=== PATIENT | female | born 1990 | race Caucasian/White ===

== ENCOUNTER 2022-12-10 11:27 | Outpatient (CLI) | payer OTHER, SELFPAY | END 2022-12-10 11:28 | disposition home or self-care (01) | LOC: NFLDREF 12-11 14:30 | PROVIDERS: PCP Family Medicine; Referring Provider Family Medicine; Visit Provider Family Medicine | DX: R53.83 Other fatigue (principal); F90.0 Attention-deficit hyperactivity disorder, predominantly inattentive type; I49.9 Cardiac arrhythmia, unspecified; R01.1 Cardiac murmur, unspecified; Z13.6 Encounter for screening for cardiovascular disorders | CPT/HCPCS: 80053; 80061; 82306; 84443 ==

== ENCOUNTER 2023-01-02 12:01 | Outpatient (CLI) | payer OTHER, SELFPAY | END 2023-01-02 12:02 | disposition home or self-care (01) | LOC: RAD 12:02 | PROVIDERS: PCP Family Medicine; Visit Provider Family Medicine | DX: F90.0 Attention-deficit hyperactivity disorder, predominantly inattentive type (principal); I49.9 Cardiac arrhythmia, unspecified; R01.1 Cardiac murmur, unspecified | CPT/HCPCS: 93306 ==

== ENCOUNTER 2024-12-07 07:54 | Outpatient (CLI) | payer OTHER, SELFPAY | END 2024-12-07 07:55 | disposition home or self-care (01) | LOC: NFLDREF 12-08 02:48 | PROVIDERS: PCP Internal Medicine; Referring Provider Internal Medicine; Visit Provider Internal Medicine | DX: Z13.228 Encounter for screening for other metabolic disorders (principal); Z13.6 Encounter for screening for cardiovascular disorders | CPT/HCPCS: 80053; 80061 ==